=== PATIENT | female | born 1990 | race Caucasian/White ===

== ENCOUNTER 2017-11-19 19:23 | Inpatient (IN) | payer OTHER ==
[~2017-11-19] VITALS: Ht 172.7 cm; Wt 127.0 kg
[~2017-11-19 19:23] MED LIST: BAC PO; CHOL400C10 PO; CRAN200C5 PO; CRAN400C2 PO; DOCU-416 PO; DOXA4TAB57 PO; HYDR-317 PO; LEVO-3 PO; LEVO-85 PO; NORE-74 PO; NORG1TAB74 PO; OXYB10TA21 PO; PHEN200T32 PO; PNV1COMB5; SOL5 PO; TAMS0.4C25 PO
[2017-11-19] MEDS ORDERED: METOCLOPRAMIDE 10 MG/2 ML SDV IVP PRN (19:25)
[2017-11-19] MEDS ORDERED: LIDOCAINE 1% LOCAL 300 MG/30ML INJ PRN (19:25)
[2017-11-19] MEDS ORDERED: DLR(*) 1000 ML BAG 1,000 ML IV PRN (19:25)
[2017-11-19] MEDS ORDERED: FLUSH 10 ML SYR IVP PRN (19:25)
[2017-11-19] MEDS ORDERED: DINOPROSTONE 10 MG INSERT PV ONE (19:25)
[2017-11-19] MEDS ORDERED: FAMOTIDINE(*) 20MG/50ML PREMIX 50 ML IVPB PRN (19:25)
[2017-11-19] MEDS ORDERED: cefOXitin/DEX(*) 2GM/50ML PREM 50 ML IVPB PRN (19:25)
[2017-11-19] MEDS ORDERED: OXYTOCIN 30 UNIT/D5LR 500 ML 500 ML IV PRN (19:45)
[2017-11-19] MEDS ORDERED: TERBUTALINE SULF 1 MG/ML VIAL SUBQ PRN (19:45)
[2017-11-19] MEDS ORDERED: fentaNYL CITR 100 MCG/2 ML AMP IVP PRN (19:45)
[2017-11-19 19:50] VITALS: BP 164/75
[2017-11-19 19:59] LABS: PLATELET COUNT, AUTOMATED 227 K/uL (150-450)
[2017-11-19] MEDS ORDERED: PREN-127 PO (22:14)
[2017-11-19] MEDS ORDERED: LEV125 PO (22:14)
[2017-11-19] MEDS ORDERED: ACETAMINOPHEN 500 MG TAB PO PRN (23:15)
[2017-11-20] MEDS: LR(*) 1000 ML BAG 1,000 ML IV PRN ×2 (07:19→09:24)
[2017-11-20] MEDS ORDERED: OXYTOCIN 30 UNIT/D5LR 500 ML 500 ML IV PRN (07:22)
[2017-11-20] MEDS ORDERED: LABETALOL HCL 100 MG/20ML VIAL IVP PRN (07:35)
[2017-11-20] MEDS ORDERED: LIDOCAINE/PF 2% 200MG/10ML AMP 200 MG/10 ML AMPUL EPI PRN (07:50)
[2017-11-20] MEDS ORDERED: EPIDURAL KEYS XX PRN (07:50)
[2017-11-20] MEDS ORDERED: BUPIVACAINE 0.5% INJ 30ML VIAL EPI PRN (07:50)
[2017-11-20] MEDS ORDERED: FENTANYL/ROPIVACAINE 100 ML BAG EPI PRN (07:50)
[2017-11-20] MEDS ORDERED: LIDO/EPI 2% MPF 1:200,000 20ML EPI PRN (07:50)
[2017-11-20] MEDS ORDERED: fentaNYL CITR 100 MCG/2 ML AMP IT PRN (07:50)
[2017-11-20] MEDS ORDERED: BUPIVACAINE 0.25% MPF INJ EPI PRN (07:50)
--- NOTE | 2017-11-20 07:59 | History & Physical ---
History of Present Illness Age of Patient: 27 : 1 Para or TPAL: 0 EDC per LMP: Dec 03, 2017 Estimated Gestational Age: 38.0 Chief Complaint hypertension History of Present Illness Presented to office yesterday with mild elevations in pressure and headaches. Cervix 2-3 cm dilated. uncomplicated otherwise. Sent in for induction. Pressures have been labile here depending on cuff size. Cervidil last night and removed at 3 and Pitocin started then, albeit barely. Labs normal with no proteinuria. Past Medical, Surgical, Family and Obstetric Histories reviewed. Please see ACOG chart. History Allergies: Coded Allergies: No Known Allergies (Verified Allergy, Mild, 03/20/10) Med Rec Home Meds Reported Medications Vits W-Ca,Fe,Fa(<1MG) ( VITAMINS) 1 Each Tablet, 1 EACH PO DAILY, TAB 11/19/17 Levothyroxine Sodium (LEVOTHYROXINE SODIUM) 0.125 Mg Tab, 0.125 MG PO QDAY, #1 TAB 11/19/17 Pnv #116/Iron Fumarate/Fa/Dha (EXPECTA COMBO PACK) 1 Each Combo..pkg 11/05/17 Cholecalciferol (Vitamin D3) (VITAMIN D) 400 Unit Capsule, 400 UNIT PO, CAPSULE 11/05/17 Cranberry Extract (CRANBERRY) 200 Mg Capsule, 200 MG PO, CAPSULE 11/05/17 Levothyroxine Sodium (LEVOTHYROXINE SODIUM) 100 Mcg Tablet, 125 MCG PO QDAY, TAB 11/05/17 Docusate Sodium (COLACE) 100 Mg Capsule, 100 MG PO BID, CAPSULE 12/06/14 Tamsulosin Hcl (FLOMAX) 0.4 Mg Cap.er.24h, 0.4 MG PO QDAY 12/06/14 Phenazopyridine Hcl (PHENAZOPYRIDINE HCL) 200 Mg Tablet, 200 MG PO TID 12/06/14 Hydrocodone/Acetaminophen (Lortab 5-325 mg Tablet) 1 Each Tablet, 1-2 TAB PO Q6H Y for PAIN, #20 12/06/14 Levofloxacin 500 Mg Tab (LEVAQUIN 500 MG TAB) 500 Mg Tablet, 500 MG PO QDAY 12/06/14 Oxybutynin Chloride (DITROPAN XL) 10 Mg Tab.er.24, 10 MG PO QDAY, TAB 12/06/14 Norethindrone A-E Estradiol (MICROGESTIN) 1 Each Tablet, 1 EACH PO DAILY 12/02/14 Levothyroxine Sodium (LEVOTHYROXINE SODIUM) 100 Mcg Tablet, 100 MCG PO QDAY 12/02/14 Review of Systems All Systems Reviewed/Normal: Yes, Except as Noted Exam General Exam Vital Signs Vital Signs Date Time Temp Pulse Resp B/P (MAP) Pulse Ox O2 Delivery O2 Flow Rate FiO2 11/19/17 19:50 99.0 93 18 164/75 (104) Room Air General Apperance: Alert/Awake/No Acute Distress Neuro: No Gross deficits Cardiovascular: Regular Rate and Rhythm Respiratory: No Respiratory Distress Abdomen: Soft, Non-Tender, Non-Distended, Gravid - Non-Tender Psychological: Alert & Oriented X3, Appropriate Mood & Affect Cervical Dialation: 3 Cervical Effacement (%): 80 Cervical Consistency: Soft Cervical Position: Anterior Station: -2 Presentation: Vertex Uterine Contractions(Q min): 5 Fetus Heart Tone Variabilty: Moderate FHT Accelerations: 15X15 FHT Category: I Medical Decision Making Data Points Result Diagram: 11/19/17 1950 11/19/17 0000 VTE Prophylasis: Adult Deep Vein Thrombosis/Pulmonary: No Pharmacological Contraindicati: Pt at Low Risk for VTE Mechanical Contraindications: Pt at Low Risk for VTE 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 Expecting . Monitor pressures Problem Qualifiers (1) Gestational hypertension: Trimester: third trimester Qualified Codes: O13.3 - Gestational [- induced] hypertension without significant proteinuria, third trimester IRAM EATON MD Nov 20, 2017 07:59
[2017-11-20] MEDS ORDERED: LEVOTHYROXINE SOD 0.125 MG TAB PO SCH (09:00)
[2017-11-20] MEDS ORDERED: HYDROCORTISONE 2.5% CR 30GM TB PR PRN (13:40)
[2017-11-20] MEDS ORDERED: BENZOCAINE 20% 60 ML BTL TP PRN (13:40)
[2017-11-20] MEDS ORDERED: LANOLIN OINT 7 GM TUBE TP PRN (13:40)
[2017-11-20] MEDS ORDERED: MAGNESIUM HYDROXIDE* 30ML UDCP PO PRN (13:40)
[2017-11-20] MEDS ORDERED: APAP/HYDROCODONE 325/5 TAB PO PRN (13:40)
[2017-11-20] MEDS ORDERED: ACETAMINOPHEN 325 MG TAB PO PRN (13:40)
[2017-11-20] MEDS ORDERED: GLYCERIN/WITCH HAZEL LEAF 1 PK TP PRN (13:40)
--- NOTE | 2017-11-20 13:42 | OB Delivery Note ---
Delivery Note Vaginal Delivery Type: Spont. Vaginal Delivery Delivery Date: Nov 20, 2017 Delivery Time: 13:03 Estimated Gestational Age(wks): 38 Delivery Anesthesia: Epidural Infant Sex: Male [place] Apgars: 1 Minute (8), 5 Minute (9) Repair Needed: Laceration, 1st Degree Estimated Blood Loss: 300 Notes: Induction today proceeded well. Pressures stable. Epidural for pain relief. Delivered over second degree laceration. No complications. COURTNEY position. Placenta spontaneous and intact. Rail Filler in Attendence: No Copies to: IRAM EATON MD, TRAVIS MD Nov 20, 2017 13:42
[2017-11-20] MEDS: IBUPROFEN 800 MG TAB PO SCH ×2 (14:40→23:20)
[2017-11-20 15:02] VITALS: BP 130/70
--- NOTE | 2017-11-20 17:34 | Anesthesia OB Pre-Anes Eval ---
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 Hx Anesthesia Reactions: No Hx Family Anesthesia Reaction: No Current Medications: pitocin, pain medication Home Meds Reported Medications Vits W-Ca,Fe,Fa(<1MG) ( VITAMINS) 1 Each Tablet, 1 EACH PO DAILY, TAB 11/19/17 Levothyroxine Sodium (LEVOTHYROXINE SODIUM) 0.125 Mg Tab, 0.125 MG PO QDAY, #1 TAB 11/19/17 Pnv #116/Iron Fumarate/Fa/Dha (EXPECTA COMBO PACK) 1 Each Combo..pkg 11/05/17 Cholecalciferol (Vitamin D3) (VITAMIN D) 400 Unit Capsule, 400 UNIT PO, CAPSULE 11/05/17 Cranberry Extract (CRANBERRY) 200 Mg Capsule, 200 MG PO, CAPSULE 11/05/17 Levothyroxine Sodium (LEVOTHYROXINE SODIUM) 100 Mcg Tablet, 125 MCG PO QDAY, TAB 11/05/17 Docusate Sodium (COLACE) 100 Mg Capsule, 100 MG PO BID, CAPSULE 12/06/14 Tamsulosin Hcl (FLOMAX) 0.4 Mg Cap.er.24h, 0.4 MG PO QDAY 12/06/14 Phenazopyridine Hcl (PHENAZOPYRIDINE HCL) 200 Mg Tablet, 200 MG PO TID 12/06/14 Hydrocodone/Acetaminophen (Lortab 5-325 mg Tablet) 1 Each Tablet, 1-2 TAB PO Q6H Y for PAIN, #20 12/06/14 Levofloxacin 500 Mg Tab (LEVAQUIN 500 MG TAB) 500 Mg Tablet, 500 MG PO QDAY 12/06/14 Oxybutynin Chloride (DITROPAN XL) 10 Mg Tab.er.24, 10 MG PO QDAY, TAB 12/06/14 Norethindrone A-E Estradiol (MICROGESTIN) 1 Each Tablet, 1 EACH PO DAILY 12/02/14 Levothyroxine Sodium (LEVOTHYROXINE SODIUM) 100 Mcg Tablet, 100 MCG PO QDAY 12/02/14 Allergies: Coded Allergies: No Known Allergies (Verified Allergy, Mild, 03/20/10) Anesthesia OB ROS Neurological: No migraines/headaches, No seizures, No neuropathy ENT: Denies Tooth caps, Denies Loose teeth, Denies Chipped teeth, Denies Dentures, Denies Bridges, Denies Retainers, Denies Veneers, Denies Implants, Denies Tongue ring Pulmonary: No asthma, No smoker (pks/day/yrs) Airway Class: ll Cardiovascular ROS: No edema, No arrhythmia GI ROS: clear liquids Last Solids Date: Nov 19, 2017 Last Solids Time: 22:00 ROS: No Herpes, No STD(s), No Liver Disease, No Renal Disease Endocrine ROS: No diabetes, No gestational diabetes, No thyroid disorder Musculoskeletal ROS: No low back pain, No low back injury, No scoliosis, other ASA Classification: 2 Assessment and Plan Anesthesia Plan: CSE Assessment Past Medical, Surgical, Family and Obstetric Histories reviewed. Please see ACOG chart. Epidural anesthesia risks, complications and benefits explained to patient's satisfaction for labor and vaginal delivery and/or section. General anesthesia risks and benefits explained to patient's satisfaction. Questions invited, none asked. WENDY HIGUERA CRNA Nov 20, 2017 17:34
--- NOTE | 2017-11-20 17:37 | Procedure Note ---
Anesthetic Placement Note Anesthesia Plan: CSE Permit for Anesthesia Signed: Yes Anesthesia Technique: Patient Sitting Anesthesia Prep: Chlorhexidine Interspace: L 3-4 Local Anesthetic: 1% Lidocaine, 25 Gauge Needle Amount Local - cc's: 2 Anesthesia Needle: 17g Touhy/Schliff Anesthesia Attempts: 1 Loss of Resistance: Air Depth of LOS (cm): 7 Epidural Needle Placement: No CSF, No Blood, No Parasthesia Intrathecal Needle: 27 Gauge Pencan Cerebral Spinal Fluid: Yes, Clear Catheter Insertion (cm): 10 Catheter Type: Biggs - Spring Wound Epidural Dressing: Tegaderm, Tape, Adhesive [place] Anesthesia Tray: Lot Number ([id number]), Expiration Date (2018-07-06), Reference Number ([id number]) Anesthesia Medications: Intrathecal Dose: mcg Fentanyl (15), mg Marcaine MPF (1.75), Time (1010) Epidural Test Dose: 1.5 Lido/Epi (1:200,000), Dose - mL (2), Time (1028), Negative Epidural Loading Dose: 0.2% Ropivicaine, With Fentanyl 2mcg/ml, Dose - ml (5), Time (1028) Epidural Infusion: 0.2% Ropivicaine, With Fentanyl 2mcg/ml, Start Time: (1028) Epidural Pump Setting: Bolus Dose - mL (5), Lockout - Minutes (20), Maintenance Rate - mL/hr (6), Maximum per Hour - mL (21) Complications: None Comment: Vital signs stable. Patient comfortable and condition stable. WENDY HIGUERA CRNA Nov 20, 2017 17:37
--- NOTE | 2017-11-20 17:41 | Anesthesia Progress Note ---
Progress/Maintenance Anesthesia Note Date: Nov 20, 2017 Anesthesia Note Time: 13:15 Pain Intensity: 0 Pump: Off Sensory Level: T-12 Motor Level: Bending Knees-Bilateral Position: Semi-Fowlers Assessment and Plan Assessment Pt. was very comfortable until dilation of 10 cm. Bolus per pump x1. Excellent tolerance of delivery and repair work. Empty syringe attached to epidural catheter and RN agrees to remove with ambulation. Patient instructed the first ambulation is to be with help of nursing staff. Instructed to preform deep knee bends at bedside before walking. Anesthesia Stop Day: Nov 20, 2017 Anesthesia Stop Time: 13:15 WENDY HIGUERA CRNA Nov 20, 2017 17:41
[2017-11-20 19:11] VITALS: BP 151/76
[2017-11-20] MEDS: DOCUSATE CALCIUM 240 MG CAP PO SCH (21:30)
[2017-11-21] VITALS (7 sets, daily range): BP systolic 124–144; BP diastolic 61–85
[2017-11-21] MEDS: IBUPROFEN 800 MG TAB PO SCH ×3 (07:47→23:38)
--- NOTE | 2017-11-21 07:54 | OB/GYN Progress Note ---
OB Subjective Progress Notes Subjective Doing well. Pain controlled and bleeding average. No preeclampsia symptoms and BP improved but occasional elevated. GI: NEG Nausea : Voiding Well Pain: Mild OB Objective Physical Exam Vital Signs Date Time Temp Pulse Resp B/P (MAP) Pulse Ox O2 Delivery O2 Flow Rate FiO2 11/21/17 06:20 97.7 81 18 124/61 (82) Room Air 11/20/17 19:11 95 General Appearance: Alert/Awake/No Acute Distress Neurological: No Gross deficits Cardiovascular: Normal Rhythm & Peripheral Pulses, Regular Rate and Rhythm Respiratory: No Respiratory Distress, Clear to Auscultation Abdomen: Soft, Non-Tender, Non-Distended, Fundus Firm, Non-Tender Integumentary: Skin Intact without Lesions or Rash Psychological: Alert & Oriented X3, Appropriate Mood & Affect Result Diagram: 11/21/17 0618 11/19/17 0000 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 If desires, may go home tonight or tomorrow Problem Qualifiers (1) Gestational hypertension: Trimester: third trimester Qualified Codes: O13.3 - Gestational [- induced] hypertension without significant proteinuria, third trimester IRAM EATON MD Nov 21, 2017 07:54
[2017-11-21] MEDS ORDERED: LOR5/325 PO (07:56)
[2017-11-21] MEDS ORDERED: IBUP800T37 PO (07:56)
--- NOTE | 2017-11-21 07:57 | OB/GYN Discharge Summary ---
Discharge Summary Reason for Hosp/Final Diag: (1) Gestational hypertension (2) care and examination immediately after delivery Hospital Course & Plan: Will see how care goes today. If desires, may go home tonight or tomorrow Lates Vital Signs Vital Signs Date Time Temp Pulse Resp B/P (MAP) Pulse Ox O2 Delivery O2 Flow Rate FiO2 11/21/17 06:20 97.7 81 18 124/61 (82) Room Air 11/20/17 19:11 95 Weight (Pounds): 280 Result Diagram: 11/21/17 0618 11/19/17 0000 Condition: Improved Discharge: Home, Self Residential Meds Active Scripts Hydrocodone Bit/Acetaminophen (HYDROCODON-ACETAMINOPHEN 5-325) 1 Each Tablet, 1- 2 EACH PO Q4H Y for PAIN, #10 TAB 0 Refills Prov:MOE DODSON MD 11/21/17 Reported Medications Vits W-Ca,Fe,Fa(<1MG) ( VITAMINS) 1 Each Tablet, 1 EACH PO DAILY, TAB 11/19/17 Levothyroxine Sodium (LEVOTHYROXINE SODIUM) 0.125 Mg Tab, 0.125 MG PO QDAY, #1 TAB 11/19/17 Pnv #116/Iron Fumarate/Fa/Dha (EXPECTA COMBO PACK) 1 Each Combo..pkg 11/05/17 Cholecalciferol (Vitamin D3) (VITAMIN D) 400 Unit Capsule, 400 UNIT PO, CAPSULE 11/05/17 Cranberry Extract (CRANBERRY) 200 Mg Capsule, 200 MG PO, CAPSULE 11/05/17 Levothyroxine Sodium (LEVOTHYROXINE SODIUM) 100 Mcg Tablet, 125 MCG PO QDAY, TAB 11/05/17 Docusate Sodium (COLACE) 100 Mg Capsule, 100 MG PO BID, CAPSULE 12/06/14 Tamsulosin Hcl (FLOMAX) 0.4 Mg Cap.er.24h, 0.4 MG PO QDAY 12/06/14 Phenazopyridine Hcl (PHENAZOPYRIDINE HCL) 200 Mg Tablet, 200 MG PO TID 12/06/14 Hydrocodone/Acetaminophen (Lortab 5-325 mg Tablet) 1 Each Tablet, 1-2 TAB PO Q6H Y for PAIN, #20 12/06/14 Levofloxacin 500 Mg Tab (LEVAQUIN 500 MG TAB) 500 Mg Tablet, 500 MG PO QDAY 3/2/15 Oxybutynin Chloride (DITROPAN XL) 10 Mg Tab.er.24, 10 MG PO QDAY, TAB 12/06/14 Norethindrone A-E Estradiol (MICROGESTIN) 1 Each Tablet, 1 EACH PO DAILY 12/02/14 Levothyroxine Sodium (LEVOTHYROXINE SODIUM) 100 Mcg Tablet, 100 MCG PO QDAY 12/02/14 Follow up Referrals: SACK FILLER - In 6 Weeks @ [facility] with Moe Dodson Md Come to office next week for BP check Follow up with: Dr. Dodson [phone] Follow up in: 6 wks PP or PO Discharge Diet: As Tolerates Discharge Activity: As Tolerates, No Heavy Lifting x 6 wks, No Heavy Lifting > 10lb, Pelvic Rest Copies to: MEO DODSON MD Problem Qualifiers (1) Gestational hypertension: Trimester: third trimester Qualified Codes: O13.3 - Gestational [- induced] hypertension without significant proteinuria, third trimester MOE DODSON MD Nov 21, 2017 07:57
[2017-11-21] MEDS: DOCUSATE CALCIUM 240 MG CAP PO SCH ×2 (08:33→21:27)
[2017-11-21] MEDS: LEVOTHYROXINE SOD 0.125 MG TAB PO SCH (08:34)
[2017-11-22 04:05] VITALS: BP 142/75
[2017-11-22 07:10] VITALS: BP 127/85
[2017-11-22] MEDS: IBUPROFEN 800 MG TAB PO SCH (07:57)
[2017-11-22] MEDS: DOCUSATE CALCIUM 240 MG CAP PO SCH (08:39)
[2017-11-22] MEDS: LEVOTHYROXINE SOD 0.125 MG TAB PO SCH (08:39)
[2017-11-22] MEDS ORDERED: MEASLES,MUMP,RUBELLA VAC 0.5ML SUBQ ONE (09:00)
[2017-11-22] MEDS ORDERED: DIPHTH/TETANUS/ACEL. PERTUSSIS IM ONLY ONE (09:00)
[2017-11-22] MEDS ORDERED: INFLUENZA VIRUS VAC 0.5 ML SYR IM ONLY ONE (09:00)
--- NOTE | 2017-11-22 09:13 | OB/GYN Progress Note ---
OB Subjective Progress Notes Subjective Doing good this morning. Tolerating regular diet. Ambulatory. Voiding with out any difficulty. . Desires to be discharged home. GI: NEG Nausea, NEG Vomiting, NEG Flatus, NEG Bowel Movement : Voiding Well, Vaginal Bleeding, Moderate Pain: Mild, Tolerating PO Pain Meds Neurological: No Headache, No Other Eyes: No Visual Disturbances OB Objective Physical Exam Vital Signs Date Time Temp Pulse Resp B/P (MAP) Pulse Ox O2 Delivery O2 Flow Rate FiO2 11/22/17 07:10 98.3 71 16 127/85 (99) 95 Room Air Intake and Output 11/23/17 07:00 # Voids 2 General Appearance: Alert/Awake/No Acute Distress Neurological: No Gross deficits ENT: Normal Cardiovascular: Normal Rhythm & Peripheral Pulses, Regular Rate and Rhythm Respiratory: No Respiratory Distress, Clear to Auscultation Abdomen: Soft, Non-Tender, Non-Distended, Fundus Firm, Non-Tender Integumentary: Skin Intact without Lesions or Rash Psychological: Alert & Oriented X3, Appropriate Mood & Affect Result Diagram: 11/21/17 0618 11/19/17 0000 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 Plan for discharge. Follow up in 1 week for BP check. Problem Qualifiers (1) Gestational hypertension: Trimester: third trimester Qualified Codes: O13.3 - Gestational [- induced] hypertension without significant proteinuria, third trimester MITRA MCDANIEL DO Nov 22, 2017 09:13
[2017-11-22 11:00] VITALS: BP 140/86
--- NOTE | 2017-11-22 11:50 | Anesthesia Post Eval Note ---
Anesthesia Post Eval Note Vital Signs Date Time Temp Pulse Resp B/P (MAP) Pulse Ox O2 Delivery O2 Flow Rate FiO2 11/22/17 11:00 98.5 94 17 140/86 (104) 95 Room Air Pt able to participate in Eval: Yes Cardiovascular Status: Satisfactory Respiratory Status: Satisfactory Pain Managment: Satisfactory PO Nausea/Vomiting: Satisfactory Temperature Management: Satisfactory Mental Status: Satisfactory, Alert, Oriented X3 Post-Op Hydration Status: Satisfactory, Tolerating PO Well, Voiding w/o Difficulty Anesthesia Type: CSE Anesthesia Tolerance: Tolerated procedure well without apparent anesthetic complications. LP site clear, no redness or edema. Denies headache or any residual paresthesia. Vital Signs Stable, Patient comfortable and condition stable. WENDY HIGUERA CRNA Nov 22, 2017 11:50
== END 2017-11-22 12:15 | disposition home or self-care (01) | DRG 775 ==
LOC: OB 19:23
PROVIDERS: ADMIT Obstetrics & Gynecology; ATTEND Obstetrics & Gynecology
PROC: 3E0P7VZ Introduction of Hormone into Female Reproductive, Via Natural or Artificial Opening (ICD-10-PCS; 2017-11-19)
PROC: 10E0XZZ Delivery of Products of Conception, External Approach (ICD-10-PCS; principal; 2017-11-20)
PROC: 0HQ9XZZ Repair Perineum Skin, External Approach (ICD-10-PCS; 2017-11-20)
DX: O13.4 Gestational [pregnancy-induced] hypertension without significant proteinuria, complicating childbirth (principal); O70.0 First degree perineal laceration during delivery; Z3A.38 38 weeks gestation of pregnancy; Z37.0 Single live birth
CPT/HCPCS: 36415; 81001; 82040; 82247; 82310; 82374; 82435; 82565; 82570; 82947; 83615; 84075; 84132; 84155; 84156; 84295; 84450; 84460; 84520; 84550; 85025; 85027; 86850; 86900; 86901; J3010; J7120; S0020

== ENCOUNTER → 2018-09-15 | Outpatient (REF) | payer OTHER ==
[~2018-09-15] MED LIST changes: +FLU60VIA41 IM; +IBUP800T37 PO; +LEV125 PO; +LOR5/325 PO; +PREN-127 PO
[2018-09-15 12:19] LABS: PLATELET COUNT, AUTOMATED 366 K/uL (150-450)
== END ==
PROVIDERS: ATTEND Family Medicine
DX: J32.9 Chronic sinusitis, unspecified (principal)
CPT/HCPCS: 82040; 82247; 82310; 82374; 82435; 82565; 82947; 84075; 84132; 84155; 84295; 84450; 84460; 84520; 85025; 86140

== ENCOUNTER → 2018-09-15 | Outpatient (CLI) | payer OTHER ==
--- NOTE | 2018-09-15 12:55 | RADIOLOGY IMAGING REPORT ---
FACILITY: [facility] PATIENT NAME: Yeni Leon : 1990 MR: [id number] V: [id number] EXAM DATE: ORDERING PHYSICIAN: RYDER CORONADO TECHNOLOGIST: Location: [facility] Patient: Yeni Leon : 1990 Visit/Account:[id number] Date of Sevice: 09/15/2018 EXAMINATION: CT of the Paranasal Sinuses HISTORY: Left-sided sinus infection for 4 days. COMPARISON: None. TECHNIQUE: Contiguous axial images were obtained through the paranasal sinuses without intravenous c ontrast administration. Coronal and sagittal reformatted images were obtained from the axial source d yolanda. One of the following dose optimization techniques was utilized in the performance of this exam: Autom ated exposure control; adjustment of the mA and/or kV according to the patient's size; or use of an i terative reconstruction technique. Specific details can be referenced in the facility's radiology C T exam operational policy. FINDINGS: Maxillary sinuses: There is fluid in the posterior left maxillary sinus. Moderate mucosal thickening in the right maxillary sinus. Frontal sinuses: Mild mucosal thickening in the left frontal sinus. The left frontoethmoidal recess is opacified. Ethmoid air cells: Opacification of multiple ethmoid air cells, more on the left. Sphenoid sinuses: Negative. Ostiomeatal units: The left ethmoid infundibulum is opacified. Small focus of opacification in the r ight ethmoid infundibulum. Nasal septum / nasal cavity: Slight leftward bowing of the anterior nasal septum. Orbits: Negative. Visualized intracranial contents/soft tissues: Negative. TMJs: Negative. IMPRESSION: Mucosal thickening and fluid in the paranasal sinuses as detailed in the body of the report. Report Dictated By: Cordell Dickey MD at 09/15/2018 12:44 PM Report E-Signed By: Cordell Dickey MD at 09/15/2018 12:51 PM WSN:[id number]
== END ==
LOC: CT 11:51
PROVIDERS: ATTEND Family Medicine
DX: J34.89 Other specified disorders of nose and nasal sinuses (principal)
CPT/HCPCS: 70486

== ENCOUNTER → 2018-09-26 | Outpatient (CLI) | payer OTHER ==
--- NOTE | 2018-09-26 14:12 | RADIOLOGY IMAGING REPORT ---
FACILITY: [facility] PATIENT NAME: Yeni Leon : 1990 MR: [id number] V: [id number] EXAM DATE: ORDERING PHYSICIAN: HERRERA ORTEGA TECHNOLOGIST: Location: [facility] Patient: Yeni Leon : 1990 Visit/Account:[id number] Date of Sevice: 09/26/2018 EXAMINATION: Ultrasound renal HISTORY: Urinary tract infection, voiding dysfunction. COMPARISON: Renal ultrasound from 09/28/2016. FINDINGS: Kidneys: Right kidney: 12.7 cm, normal parenchymal thickness and echogenicity. Left kidney: 11.8 cm, normal parenchymal thickness and echogenicity. Uniform and symmetric blood flow in each kidney by Doppler ultrasound. Resistive index is normal on the right at 0.63 and on the left at 0.49. Hydronephrosis: There is an extrarenal pelvis on the right and mild pelviectasis on the left, similar to previous exam, which do not change after voiding. No hydronephrosis. Bladder: Distended without focal abnormality. Normal bilateral ureteral jets visualized. Post void residual of 68 mL. Abdominal aorta and IVC: Patent by Doppler ultrasound. Fatty liver partly visualized. IMPRESSION: 1. Normal sonographic appearance of the kidneys. 2. Post void residual of 68 mL. 3. Fatty liver partly visualized. Report Dictated By: Bertha Roche MD at 09/26/2018 1:57 PM Report E-Signed By: Bertha Roche MD at 09/26/2018 2:08 PM WSN:[email or web address]
== END ==
LOC: US 07:07
PROVIDERS: ATTEND Urology
DX: N39.9 Disorder of urinary system, unspecified (principal); N39.0 Urinary tract infection, site not specified
CPT/HCPCS: 76705; 81001; 82565; 87088